=== PATIENT | male | born 1965 | race Caucasian/White ===

== ENCOUNTER 2022-11-19 23:12 | Emergency (ER) | payer OTHER, MEDICAID ==
[~2022-11-19] VITALS: Ht 175.3 cm; Wt 107.0 kg
[~2022-11-19 23:12] MED LIST: ACC40 PO; AMLO5TAB88 PO; GLIP10TA3 PO; LOVA20TA2 PO; SITA1TAB8 PO
[2022-11-19 23:31] VITALS: BP 130/86
[2022-11-20] MEDS ORDERED: NALO4SPR BOTHNSTRLS (01:21)
[2022-11-20] MEDS ORDERED: CHLORPROMAZINE HCL 25 MG TABLET PO ONE (01:30)
== END 2022-11-20 02:18 | disposition home or self-care (01) ==
LOC: ER 23:12
DX: T39.1X1A Poisoning by 4-Aminophenol derivatives, accidental (unintentional), initial encounter (principal); X58.XXXA Exposure to other specified factors, initial encounter; R06.6 Hiccough; E11.9 Type 2 diabetes mellitus without complications; E78.00 Pure hypercholesterolemia, unspecified; I10 Essential (primary) hypertension
CPT/HCPCS: 99283; Q0161